=== PATIENT | male | born 1955 | race Caucasian/White ===

== ENCOUNTER → 2017-07-04 | Outpatient (CLI) | payer OTHER ==
[~2017-07-04] MED LIST: REGADENOSON 0.4 MG/5 ML DISP.SYRIN. IV
== END | disposition home or self-care (01) ==
LOC: PCVCIMAG 07:46
DX: I07.1 Rheumatic tricuspid insufficiency (principal); I48.0 Paroxysmal atrial fibrillation; I25.10 Atherosclerotic heart disease of native coronary artery without angina pectoris; I10 Essential (primary) hypertension; E78.00 Pure hypercholesterolemia, unspecified; Z95.5 Presence of coronary angioplasty implant and graft; R07.9 Chest pain, unspecified; R06.00 Dyspnea, unspecified; I25.2 Old myocardial infarction
CPT/HCPCS: 78452; 80061; 93005; 93017; 93306; A9500; G0463; J2785

== ENCOUNTER → 2018-12-26 | Outpatient (CLI) | payer OTHER ==
--- NOTE | 2018-12-26 09:42 | PCVCIMAG ---
APPROVED REPORT Study performed: 12/26/2018 07:48:15 EXAM: Comprehensive 2D, Doppler, and color-flow Echocardiogram Patient Location: Echo lab Status: routine BSA: 2.29 HR: 73 bpmBP: 138/84 mmHg Rhythm: NSR Other Information Study Quality: Adequate Risk Factors: Cardiac Risk Factors: HTN Indications Atrial Fibrillation CAD 2D Dimensions IVSd: 13.57 (7-11mm) LVDd: 42.52 mm PWd: 13.27 (7-11mm)Ascending Ao: 37.38 (22-36mm) LVDs: 27.70 (25-40mm) Left Atrium: 43.14 (27-40mm) Aortic Root: 35.85 mm LV Single Plane 4CH: 56.30 % LV Single Plane 2CH: 59.66 % Biplane EF: 56.9 % Volumes Left Atrial Volume (Systole) Single Plane 4CH: 78.78 mLSingle Plane 2CH: 90.87 mL LA ESV Index: 39.00 mL/m2 Aortic Valve AoV Peak Carl.: 1.62 m/s AO Peak Gr.: 10.54 mmHgLVOT Max P.78 mmHg LVOT Max V: 1.30 m/s Mitral Valve E/A Ratio: 0.8 MV Decel. Time: 286.67 ms MV E Max Carl.: 0.56 m/s MV A Carl.: 0.71 m/s IVRT: 110.73 ms Pulmonary Valve PV Peak Carl.: 1.13 m/sPV Peak Gr.: 5.09 mmHg Pulmonary Vein P Vein S: 0.31 m/sP Vein A: 0.32 m/s P Vein D: 0.38 m/sP Vein A Dur.: 148.8 msec P Vein S/D Ratio: 0.82 Tricuspid Valve TR Peak Carl.: 2.40 m/s TR Peak Gr.: 23.02 mmHg TV Vmax: 0.50 m/s Left Ventricle The left ventricle is normal size. There is normal LV segmental wall motion. Mild concentric left ventricular hypertrophy. Left ventricular systolic function is normal. The left ventricular ejection fraction is within the normal range. LVEF is 55-60%. Grade I - abnormal relaxation pattern. Right Ventricle The right ventricle is normal size. The right ventricular systolic function is normal. Atria Left atrium is mildly dilated. The right atrium size is normal. Aortic Valve The aortic valve is normal in structure. No aortic regurgitation is present. There is no aortic valvular stenosis. Mitral Valve The mitral valve is normal in structure. Mild mitral regurgitation. No evidence of mitral valve stenosis. Tricuspid Valve The tricuspid valve is normal in structure. Trace tricuspid regurgitation with PAP of 30 mmHg. Pulmonic Valve The pulmonary valve is normal in structure. There is no pulmonic valvular regurgitation. Great Vessels The aortic root is normal in size. IVC is normal in size and collapses >50% with inspiration. Pericardium There is no pericardial effusion. There is no pleural effusion. <Conclusion> The left ventricle is normal size. Mild concentric left ventricular hypertrophy. Left ventricular systolic function is normal. Grade I - abnormal relaxation pattern. The right ventricle is normal size. Left atrium is mildly dilated. The aortic valve is normal in structure. Mild mitral regurgitation. Trace tricuspid regurgitation with PAP of 30 mmHg.
== END | disposition home or self-care (01) ==
LOC: PCVCIMAG 08:58
PROVIDERS: ATTEND Internal Medicine Cardiovascular Disease
DX: I34.0 Nonrheumatic mitral (valve) insufficiency (principal); I11.9 Hypertensive heart disease without heart failure; I25.10 Atherosclerotic heart disease of native coronary artery without angina pectoris; I48.91 Unspecified atrial fibrillation; K21.9 Gastro-esophageal reflux disease without esophagitis; E78.00 Pure hypercholesterolemia, unspecified; R06.00 Dyspnea, unspecified; Z79.82 Long term (current) use of aspirin; Z79.899 Other long term (current) drug therapy; Z87.891 Personal history of nicotine dependence; Z72.89 Other problems related to lifestyle; Z95.820 Peripheral vascular angioplasty status with implants and grafts
CPT/HCPCS: 93306